=== PATIENT | female | born 1985 | race Caucasian/White ===

== ENCOUNTER → 2020-04-18 | Outpatient (CLI) | payer BC ==
--- NOTE | 2020-04-18 17:36 | RAD ---
Obstetric ultrasound less than 14 weeks with transvaginal: Reason for examination: Supervision are normal first in first trimester. 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 Cardiac activity is seen with a cardiac rate of 169 bpm. The gestational sac has a normal contour. Yolk sac is identified. The right ovary measures 3.9 x 2.2 x 3.5 cm in greatest di mension and appears contained a 2.1 cm cyst. The left ovary is not identified. No free fluid is seen. Transvaginally, crown-rump length of the fetus is 2.6 by cm corresponding to gestational age of 9 wee ks 3 days. There is fluid in the endometrial cavity surrounding the gestational sac. 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 Mean gestational age of fetus is estimated at 9 weeks 3 days with estimated date of confinement of 11/18/2020. This corres ponds adequately with clinical dates. There is fluid surrounding the gestational sac. 2.1 cm cyst in the right ovary. Electronically signed by: Mariana Armas MD (04/18/2020 5:34 PM) [facility]
== END ==
LOC: US 15:45
PROVIDERS: ATTEND Family Medicine
DX: Z34.91 Encounter for supervision of normal pregnancy, unspecified, first trimester (principal); Z3A.09 9 weeks gestation of pregnancy; N83.291 Other ovarian cyst, right side
CPT/HCPCS: 76801; 76817